=== PATIENT | male | born 1955 | race Caucasian/White ===

== ENCOUNTER 2017-06-06 16:21 | Emergency (ER) | payer OTHER ==
[~2017-06-06] VITALS: Ht 167.6 cm; Wt 93.4 kg
--- NOTE | 2017-06-06 16:36 | NUR ---
Patient ambulated to bed 07.
[2017-06-06 16:40] VITALS: BP 132/83
--- NOTE | 2017-06-06 16:42 | NUR ---
Dr. Quezada evaluating patient at bedside.
--- NOTE | 2017-06-06 16:47 | NUR ---
61 M BIB DAUGHTER W/C/O INTERMITTENT FEVERS DUE TO PNA; PT STATES HE WAS SEEN IN ER YESTERDAY, DX W/PNEUMONIA AND D/C ON ABX, BUT THE FEVER HAS CONTINUED; TEMPERATURE UPON ARRIVAL TO ER 97.3, PT STATES HE LAST TOOK TYLENOL 3 HOURS AGO; DENIES N/V/D; SKIN IS PINK/WARM/DRY; AAOX4 WITH EVEN AND STEADY GAIT; LUNGS CLEAR BL; RR ARE EVEN AND UNLABORED; PT DENIES ANY CP OR SOB AT THIS TIME; PATIENT STATES PAIN OF 0/10 AT THIS TIME; VSS; PATIENT POSITIONED FOR COMFORT; HOB ELEVATED; BEDRAILS UP X2; BED DOWN; MD RODRIGUEZ BY BEDSIDE EXAMINING PT
--- NOTE | 2017-06-06 16:55 | NUR ---
Patient discharged with v/s stable. Written and verbal after care instructions given and explained. Patient alert, oriented and verbalized understanding of instructions. Carried with steady gait. All questions addressed prior to discharge. ID band removed. Patient advised to follow up with PMD. Rx of Naproxen given. Patient educated on indication of medication including possible reaction and side effects. Opportunity to ask questions provided and answered.
[2017-06-06 16:56] VITALS: BP 131/80
== END 2017-06-06 16:55 | disposition home or self-care (01) ==
LOC: MED 16:21
DX: J18.9 Pneumonia, unspecified organism (principal)
CPT/HCPCS: 99283